=== PATIENT | female | born 1960 | race Caucasian/White ===

== ENCOUNTER 2016-08-05 06:49 | Emergency (ER) | payer OTHER ==
[~2016-08-05] VITALS: Ht 170.2 cm; Wt 90.9 kg
[~2016-08-05 06:49] MED LIST: EPIN0.3D IM; FROV2.5T3 PO; IBUP-1149 PO; LIP40 PO; METHADONE PO; NAPR220C11 PO; NEURONTIN PO; SERT100T PO; TOPI200T14 PO; VOLTAREN GEL TOP
[2016-08-05 07:00] VITALS: BP 134/86; PULSE 68; RESP 18; O2SAT 100
--- NOTE | 2016-08-05 08:45 | DRSVH ---
PROCEDURE: X-RAY LEFT WRIST COMPLETE, MINIMUM THREE VIEWS ([id number]) INDICATIONS: possible scaphoid fracture TECHNIQUE: 4 views of the wrist were acquired. COMPARISON: None. FINDINGS: Bones: No fractures or dislocations. No suspicious bony lesions. Scaphoid view: Intact scaphoid. Soft tissues: No suspicious soft tissue calcifications. IMPRESSION: No displaced fracture seen. If there is continued pain, followup exam or additional zora ging such as MRI or CT could be performed for further assessment. Dictated by: Wes Hearn RRA Interpreted: Phuong Hebert MD on 08/05/2016 at 8:44 Transcribed by: MATTHEW on 08/05/2016 at 8:45 Approved by: Phuong Hebert MD, PhD on 08/05/2016 at 17:15
--- NOTE | 2016-08-05 09:54 | DRSVH ---
PROCEDURE: CT BRAIN WITHOUT CONTRAST ([id number]) INDICATIONS: occiput GLF with blurred vision, possible ICB TECHNIQUE: Noncontrast 4.5 mm thick angled axial sections acquired from the foramen magnum to the vertex, with c oronal reformats. COMPARISON: None. FINDINGS: Image quality: Excellent. CSF spaces: Basal cisterns are patent. No extra-axial fluid collections. Ventricles are normal in size and shape. Brain: No midline shift. No intracranial masses or hemorrhage. Amaral-white matter interface is norm al. Skull and face: Calvarium and visualized facial bones are intact, without suspicious lesions. Sinuses: Visualized sinuses and mastoids are clear. IMPRESSION: No acute intracranial disease process. Dictated by: Phuong Hebert MD, PhD on 08/05/2016 at 9:52 Approved by: Phuong Hebert MD, PhD on 08/05/2016 at 9:53
[2016-08-05] MEDS ORDERED: Promethazine Inj 25 MG in Dextrose 5%-Pha MIX 50 ML IV ONE (10:05)
--- NOTE | 2016-08-05 10:28 | ED.REPORT ---
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 The injury occurred 24hours prior on icy concrete getting out of her car. The patient states that since that time she has had dizziness with moving her head described as vertigo as well as nausea and blurring vision in her left eye and ringing in her left ear. The patient states that these are all new. The patient says that she hit the back left side of her head and injured her left hand. 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 The patient states that she had had clear drainage from her nose which had some blood. She denies runny nose prior but says that the patient has been coughing at night for several days prior to the fall. The patient also reports nausea and vomiting. Nursing Notes Stated Complaint: HEAD INJURY, VOMITING Chief Complaint: Multiple Trauma/Fall Nursing Notes Reviewed: Yes Allergies: Coded Allergies: Clindamycin Palmitate (Verified Allergy, Severe, HIVES, 03/01/13) clindamycin HCl (Verified Allergy, Severe, HIVES, 03/01/13) clindamycin phosphate (Verified Allergy, Severe, HIVES, 03/01/13) diclofenac sodium (Verified Allergy, Severe, FLANK PAIN, 03/01/13) Uncoded Allergies: BEES (Allergy, Severe, ANAPHYLAXIS, 03/01/13) Scheduled ([Methadone]) 20 MG PO AM ([Methadone]) 10 MG PO PM ([Neurontin]) 100 MG PO HS ([Voltaren Gel]) TOP PRN Atorvastatin-Expunged Drug, Do Not Renew! (Atorvastatin-Expunged Drug, Do Not Renew!) 40 Mg Tablet 40 MG PO DAILY Epinephrine-Expunged Drug, Do Not Renew! (Epipen-Expunged Drug, Do Not Renew!) 0.3 Mg/0.3/Syringe Pen.injctr 0.3 MG IM PRN Frovatriptan-Expunged Drug, Do Not Renew! (Frova-Expunged Drug, Do Not Renew!) 2.5 Mg Tablet 2.5 MG PO PRN for MEADOWS IBUPROFEN-Expunged Drug, Do Not Renew! (IBUPROFEN-Expunged Drug, Do Not Renew!) 600 Mg Tablet 600 MG PO TID PRN Naproxen Sod-Expunged Drug, Do Not Renew!! (Aleve-Expunged Drug,Do Not Renew!) 220 Mg Capsule 220 MG PO PRN Sertraline-Expunged Drug, Choose New Med! (Sertraline-Expunged Drug, Choose New Med!) 100 Mg Tablet 100 MG PO DAILY Topiramate-Expunged Drug, Do Not Renew! (Topiramate-Expunged Drug, Do Not Renew! ) 200 Mg Tablet 100 MG PO HS Scheduled PRN Meclizine (Bonine) 25 Mg Tab.chew 25 MG PO QID PRN PRN For Nausea General Time Seen by MD: 07:00 Chief Complaint Fall, Slipped, Head pain Hx Obtained From: Patient, Spouse Arrived By: Ambulance Onset Occurred: 1 day ago Symptom Duration: Since onset Caused by: Accidental Location: Head Wrist left Quality: Dull, Sharp, Throbbing Severity: Current: Moderate Severity: Maximum: Severe Recent Healthcare: No recent hospitalization Similar Sx Previous: No Past Medical History Past Medical History trigeminal neuralgia secondary to osteomyeltits 1991 migraines chronic pain hyperlipidemia Past Surgical History numerous facial surgeries for right maxillary osteomyelitis 1991 frozen shoulder bilateral knee arthroplasty Reports: Cholecystectomy, Tonsillectomy Smoking History Never Smoker Social History Alcohol Use: "Social" Drug Use: Denies drug use Other Social History: Good social support, , Local resident Ambulatory Status Independent Review of Systems Basic Review of Systems Cardiovascular: No chest pain, No dyspnea on exertion, No orthopnea, No parox noct dyspnea, No palpitations GI: No abdominal pain, No anorexia : No dysuria, No frequency Hematologic: No bleeding, No bruising Endocrine: No cold intolerance, No heat intolerance, No weight gain, No weight loss Allergy / Immune: No allergy Psychiatric: Normal thought content Constitutional: Denies: Chills, Fever Eyes: Reports: Blurred left Ears / Nose / Throat: Reports: Ear ringing bilateral (left is new, right is chronic), Nasal congestion, Denies: Hearing loss bilateral, Sore throat, Voice change Respiratory: Denies: Dyspnea on exertion, Hemoptysis, Non-productive cough, Pleuritic pain Musculoskeletal: Reports: Extremity pain, Joint pain, Denies: Extremity swelling, Neck pain Skin: Denies Bruising, Denies Diaphoresis, Denies Rash, Denies Unexplained bruises Neurologic: Reports: Dizziness, Headache, Numbness (left hand), Spinning sensation, Vision change, Denies: Bladder dysfunction, Bowel dysfunction, Change LOC, Confusion, Focal weakness Complete sys rev & neg: except as marked. Physical Exam Initial Vital Signs Vital Signs (First) Date Time Temp Pulse Resp B/P Pulse Ox O2 Delivery O2 Flow Rate FiO2 08/05/16 07:00 37.1 68 18 134/86 100 Room Air Initial VS: Reviewed Head / Eyes: Normocephalic, PERRL ENT: Mucous membranes moist, Conjunctiva normal, No scleral icterus Respiratory: Breath sounds normal, Clear to auscultation, No respiratory distress Cardiovascular: Regular rate & rhythm, Heart sounds normal, Intact distal pulses Abdomen / GI: Soft, Non-tender, No guarding, No rebound, No distention Back: No CVA tenderness Lymphatic: No lymphadenopathy Extremities: Vascular intact, Neuro intact, No swelling Skin: Warm, Dry, No cyanosis Neurologic: Alert, Oriented, Nonfocal Psychiatric: Mood/affect normal, Behavior normal, Normal thought content General/Constitutional: Awake, Alert, Cooperative, Not toxic appearing Distress / Hydration: Positive: Distress mild, Negative: Distress moderate Neck: Atraumatic, Supple, Full range of motion, No swelling, Non-tender, No midline vertebral tend Head / Eyes: PERRL, EOMI, No periorbital redness, No periorbital swelling, No scleral icterus, Conjunctiva NL Head / Scalp Abnl: Positive: Scalp swollen occipital L, Scalp tender occipital L Pupils: Positive: Photophobia L, Photophobia R, Negative: Anisocoria, Nonreactive L, Nonreactive R Eye Movement: Positive: Nystagmus horizontal (mild) worsening horizontal nystagmus with Marito-hallpike consistent with inner ear dysfunction ENT: Atraumatic, Airway patent, Mucous membranes moist, Pharynx NL Respiratory / Chest: Breath sounds NL, Breath sounds = bilat, No respiratory distress, No rales, No rhonchi, No wheezing, No chest tenderness, No chest wall deformity, No crepitus Cardiovascular: Heart rate NL, Regular rhythm, Heart sounds NL, Cap refill not delayed, Peripheral circulation NL Abdomen: Atraumatic, Soft, Non-tender, No guarding, No rebound, No distention Upper Extremity / MS: Atraumatic, Inspection NL, No swelling, No erythema, No deformity, Neurologic intact, Vascular intact Left Wrist: Positive: Tender snuffbox..., Negative: Ecchymosis present..., Erythema present, Swelling present... Left Thumb: Negative: Ecchymosis present, Swelling present..., Tenderness present... Skin: Atraumatic, Color NL, Warm, Dry, Intact, Turgor NL Neurologic: Oriented X3, Speech NL, No motor deficits, No sensory deficits, CN II - XII intact, Cerebellar NL, Memory NL Interpretation & Diagnostics X-Ray Interpretation Xray Interpretation: IMPRESSION: No displaced fracture seen. If there is continued pain, followup exam or additional imaging such as MRI or CT could be performed for further assessment. Dictated by: Wes Hearn RR Interpreted: Phuong Hebert MD on 08/05/2016 at 8:44 Transcribed by: MATTHEW on 08/05/2016 at 8:45 X-Ray Ordered: Wrist left Interpretation / Wet Read by: Interpret - Radiologist Interpretation: Normal exam, No fracture/dislocation CT Head Interpretation IMPRESSION: No acute intracranial disease process. Dictated by: Phuong Hebert MD, PhD on 08/05/2016 at 9:52 Approved by: Phuong Hebert MD, PhD on 08/05/2016 at 9:53 Study: Head CT no contrast Interpretation / Wet Read by: Interpret - Radiologist Re-Eval/Medical Decision Med Decision/Clinical Course 56yoF with ground level fall on icy concrete presents with nausea, vertigo, blurring vision in her left eye and ringing left ear as well as left wrist pain. On physical exam NIH is negative however horizontal nystagmus consistent with inner ear dysfunction on marito-hallpike. Left wrist with anatomical snuffbox tenderness and movement of the proximal 1st metacarpal. Wrist xray negative for fracture specifically scaphoid. The patient will be placed in a spica splint and advised to get follow up xrays in [address] head is negative for acute intracranial bleed. Patient will be sent with a prescription for Antevert and advised to follow up in 1 week with her PCP for resolution of her symptoms. Discharge & Departure Impression: Primary Impression: Aural vertigo Laterality: unspecified laterality Qualified Code: H81.319 - Aural vertigo, unspecified ear Additional Impressions: Inner ear dysfunction Laterality: unspecified laterality Qualified Code: H83.90 - Unspecified disease of inner ear, unspecified ear Wrist pain, left Head contusion Encounter type: initial encounter Contusion of head detail: unspecified part of head Qualified Code: S00.93XA - Contusion of unspecified part of head , initial encounter Ruled Out: Intracranial hemorrhage Disposition: Home Discharge Condition All VS Reviewed: Yes Condition: Stable Patient Instructions: Benign Paroxysmal Positional Vertigo (ED), Vertigo (ED) Additional Instructions: During you visit to [facility] Emergency Department we obtained blood work for infectious markers, hemoglobin levels, and electrolytes. We obtained high resolution imaging of your brain and left wrist. The CT scan of your brain did not show any acute brain bleed, and your left wrist does not show a scaphoid fracture however you will need follow up xray imaging in 2 weeks for further evaluation of your wrist. All your lab values were within normal limits and your imaging showed no acute processes or abnormalities. Your vital signs were stable and safe for discharge. Your nausea is most likely due to an inner ear dysfunction. We will send you home with - Antivert medication for vertigo When taking Antivert DO NOT drive, DO NOT drink alcohol this medication can be sedating. You will be placed in a thumb spica splint which you should wear constantly except while icing your wrist and showering or bathing until evaluated by your PCP with further imaging. You may take your regular pain medication which should also provide some relief for your head and wrist pain. You may try icing your left wrist for 20 mimutes at a time for 3 times a day. Do not hesitate to call emergency services or your primary care physician if you experience any of the following. - worsening vision and hearing - High unrelenting fevers. - Uncontrolled vomiting. - Severe hypertension. - worsening dizziness or loss of consciousness. - Chest pain or severe shortness of breath. Please follow up with your primary care physician in 1 weeks time following your emergency department visit for further evaluation of your blurry vision and nausea as well as further imaging of your left wrist. Referrals: Sherry Jackson (PCP) Attending Statement The patient was seen and examined together with Dr. Baez on 08/05/16 and I agree with the history, exam and plan as outlined in the note above. copies to: Sherry Jackson Nicholas K DO Aug 05, 2016 09:16 Fermin Fitzpatrick MD Aug 05, 2016 13:43
[2016-08-05] MEDS ORDERED: MECL-114 PO (10:30)
[2016-08-05 11:40] VITALS: BP 115/72; PULSE 74; RESP 15; O2SAT 96
== END 2016-08-05 11:20 | disposition home or self-care (01) ==
LOC: SED 06:49 → EDBD 06:49 → SED 11:20
DX: S00.93XA Contusion of unspecified part of head, initial encounter (principal); S60.212A Contusion of left wrist, initial encounter; M25.532 Pain in left wrist; H83.90 Unspecified disease of inner ear, unspecified ear; H81.319 Aural vertigo, unspecified ear; W00.0XXA Fall on same level due to ice and snow, initial encounter; Y93.89 Activity, other specified; Y99.8 Other external cause status; Y92.89 Other specified places as the place of occurrence of the external cause; Z88.1 Allergy status to other antibiotic agents; Z88.8 Allergy status to other drugs, medicaments and biological substances
CPT/HCPCS: 29125; 70450; 73110; 99284; J2550